=== PATIENT | female | born 1975 | race Caucasian/White ===

== ENCOUNTER 2021-10-23 09:19 | Emergency (ER) | payer OTHER ==
[~2021-10-23] VITALS: Ht 167.6 cm; Wt 117.9 kg
--- NOTE | 2021-10-23 09:27 | NUR ---
Dr Aburto at the bedside for MSE.
--- NOTE | 2021-10-23 10:17 | NUR ---
Patient discharged to home in stable condition. Written and verbal after care instructions given. Patient verbalizes understanding of instructions. Stressed follow up or return to ER for worsening s/s. Pt walked out of ER w/ steady gait.
[2021-10-23 10:19] VITALS: BP 132/76
== END 2021-10-23 10:19 | disposition home or self-care (01) ==
LOC: ER 09:19
DX: M25.561 Pain in right knee (principal)
CPT/HCPCS: 73562; A4663